=== PATIENT | female | born 1970 ===

== ENCOUNTER 2017-08-30 02:07 | Outpatient (CLI) | payer BC | END 2017-08-30 23:59 | disposition home or self-care (01) | LOC: DIABETIC 02:07 | PROVIDERS: ATTEND Surgery | DX: E66.01 Morbid (severe) obesity due to excess calories (principal); E00.9 Congenital iodine-deficiency syndrome, unspecified; M19.90 Unspecified osteoarthritis, unspecified site | CPT/HCPCS: 97802 ==

== ENCOUNTER 2017-10-02 02:50 | Outpatient (CLI) | payer BC | END 2017-10-02 23:59 | disposition home or self-care (01) | LOC: DIABETIC 02:50 | PROVIDERS: ATTEND Surgery | DX: E66.01 Morbid (severe) obesity due to excess calories (principal); M19.90 Unspecified osteoarthritis, unspecified site; E11.9 Type 2 diabetes mellitus without complications | CPT/HCPCS: 97802 ==

== ENCOUNTER 2018-08-30 02:27 | Outpatient (CLI) | payer BC | END 2018-08-30 23:59 | disposition home or self-care (01) | LOC: DIABETIC 02:27 | PROVIDERS: ATTEND Surgery | DX: Z48.815 Encounter for surgical aftercare following surgery on the digestive system (principal); Z98.84 Bariatric surgery status | CPT/HCPCS: 97802 ==